=== PATIENT | female | born 1995 | race Caucasian/White ===

== ENCOUNTER 2021-12-31 09:32 | Inpatient (IN) | payer OTHER ==
[2021-12-31] VITALS (39 sets, daily range): BP systolic 88–113; BP diastolic 31–53
[~2021-12-31] VITALS: Ht 198.1 cm; Wt 94.0 kg
[~2021-12-31 09:32] MED LIST: FER325T PO; METHYLENE BLUE 0.5% 5MG/ML 10ml AMP IV ONE
[2021-12-31] MEDS ORDERED: SODIUM BICARBONATE 8.4 % INJ 50ML VIAL IV ONE ×3 (13:15→19:45)
[2021-12-31] MEDS ORDERED: HETASTARCH 500 ML IV ONE ×3 (13:15→14:00)
[2021-12-31] MEDS ORDERED: SODIUM CHL 0.9% IV SCH (14:15)
[2021-12-31] MEDS ORDERED: methylPREDNISolone SOD SUCC 40 MG/ML VL IV ONE (14:15)
[2021-12-31] MEDS ORDERED: DOBUTamine 1000MCG/ML 250 ML IV SCH (14:15)
[2021-12-31] MEDS ORDERED: LEVOTHYROXINE IV SCH (14:15)
[2021-12-31] MEDS ORDERED: LEVOTHYROXINE SODIUM 100 MCG/5 ML INJ IV ONE (14:15)
[2021-12-31] MEDS ORDERED: NOREPINEPHRINE BITARTRATE 32 MG in SODIUM CHL 0.9% 218 ML IV SCH (14:30)
[2021-12-31] MEDS ORDERED: VASOPRESSIN 50 UNITS in D5W 5% 247.5 ML IV SCH (14:30)
[2021-12-31] MEDS ORDERED: EPINEPHrine HCL INJECTION 16 MG in D5W 5% 234 ML IV SCH (14:30)
[2021-12-31] MEDS ORDERED: DOPamine 1600MCG/ML D5W 250 ML IV SCH (14:30)
[2021-12-31] MEDS ORDERED: THIAMINE 100mg/ml INJ (200mg/2ml VIAL) IM ONE (15:00)
[2021-12-31] MEDS ORDERED: methylPREDNISolone SOD SUCC 2,000 MG in SODIUM CHL 0.9% 100 ML IV ONE (15:45)
[2021-12-31] MEDS: ACCU-CHEK COMFORT CURVE STRIP VI SCH ×4 (16:00→22:44)
[2021-12-31] MEDS: ARTIFICIAL TEARS 15ml EACHEYE SCH ×4 (16:00→22:44)
[2021-12-31] MEDS ORDERED: METHYLENE BLUE 0.5% 5MG/ML 10ml AMP IV ONE (18:30)
[2021-12-31] MEDS: PHENYLEPHRINE INJ 80 MG in SODIUM CHL 0.9% 242 ML IV SCH (18:41)
[2021-12-31] MEDS ORDERED: SODIUM BICARBONATE 8.4% INJ 50ML SYRINGE ONE (20:11)
[2021-12-31 20:13] LABS: Basophils # (auto) 0 10 ^3/uL (0-0.2); Basophils % (auto) 0.1 % (0.0-2.0); Monocytes # (auto) 0.3 10 ^3/uL (0-1.3); Nucleated Red Blood Cells % 0.1 %
[2021-12-31 20:17] LABS: Eosinophils # (auto) 1.4 10 ^3/uL (0-0.8); Eosinophils % (auto) 11.4 % (0.0-7.0); Hematocrit 23.1 % (36.0-46.0); Hemoglobin 7.6 g/dL (12.2-16.2); Lymphocytes # (auto) 1.2 10 ^3/uL (0.4-5.4); Lymphocytes % (auto) 9.6 % (10.0-50.0); Mean Corpuscular Hemoglobin 27.9 pg (28.0-32.0); Mean Corpuscular Hgb Conc. 32.7 g/dL (32.0-36.0); Mean Corpuscular Volume 85.2 fL (80.0-100.0); Monocytes % (auto) 2.2 % (0.0-12.0); Neutrophils # (auto) 9.5 10 ^3/uL (1.6-8.6); Neutrophils % (auto) 76.7 % (37.0-80.0); Red Blood Cells 2.72 10^6/uL (4.0-5.20); Red Cell Distribution Width 16.3 % (11.8-14.3); White Blood Cell 12.5 10^3/uL (4.4-10.8)
[2021-12-31 20:26] LABS: Albumin 2.4 g/dL (3.4-5.0); Magnesium 1.5 mg/dL (1.6-2.6); Potassium 4.6 mmol/L (3.5-5.1)
[2021-12-31 20:43] LABS: BUN/Creatinine Ratio 13.7; Bilirubin, Direct 6.2 mg/dL (0-0.2); Bilirubin, Total 7.7 mg/dL (0.2-1.0); Total Protein 3.7 g/dL (6.4-8.2)
[2021-12-31] MEDS ORDERED: CYANOCOBALAMIN (B-12) 1000 MCG/1 ML VIAL SUBCUT ONE (21:30)
[2022-01-01] VITALS (40 sets, daily range): BP systolic 97–159; BP diastolic 54–84
[2022-01-01] MEDS ORDERED: THIAMINE 100mg/ml INJ (200mg/2ml VIAL) IM SCH
[2022-01-01] MEDS: ARTIFICIAL TEARS 15ml EACHEYE SCH ×4 (00:06→06:15)
[2022-01-01] MEDS: PIPERACILLIN-TAZOB 2.25GM 50 ML IV SCH ×2 (00:12→07:52)
[2022-01-01] MEDS: ACCU-CHEK COMFORT CURVE STRIP VI SCH ×4 (00:20→06:22)
[2022-01-01 00:56] LABS: Basophils # (auto) 0 10 ^3/uL (0-0.2); Lymphocytes # (auto) 0.8 10 ^3/uL (0.4-5.4)
[2022-01-01 00:58] LABS: Basophils % (auto) 0.1 % (0.0-2.0); Eosinophils % (auto) 9.6 % (0.0-7.0); Hematocrit 22.7 % (36.0-46.0); Hemoglobin 7.6 g/dL (12.2-16.2); Lymphocytes % (auto) 8.1 % (10.0-50.0); Mean Corpuscular Hemoglobin 29.2 pg (28.0-32.0); Mean Corpuscular Hgb Conc. 33.6 g/dL (32.0-36.0); Mean Corpuscular Volume 86.8 fL (80.0-100.0); Monocytes # (auto) 0.4 10 ^3/uL (0-1.3); Monocytes % (auto) 4.4 % (0.0-12.0); Neutrophils # (auto) 7.7 10 ^3/uL (1.6-8.6); Neutrophils % (auto) 77.8 % (37.0-80.0); Nucleated Red Blood Cells % 0.2 %; Red Blood Cells 2.62 10^6/uL (4.0-5.20); Red Cell Distribution Width 16.7 % (11.8-14.3); White Blood Cell 9.9 10^3/uL (4.4-10.8)
[2022-01-01] MEDS: DOPamine 3200MCG/ML 250 ML IV SCH ×2 (01:09→08:03)
[2022-01-01 01:10] LABS: INR 3.3 (0.9-1.15); Partial Thromboplastin Time 57.2 sec (24.6-33.4)
[2022-01-01 01:37] LABS: Lactic Acid w/Reflex 11.5 mmol/L (0.4-2.0)
[2022-01-01 01:42] LABS: Albumin 2.4 g/dL (3.4-5.0); BUN/Creatinine Ratio 14.4; Magnesium 1.6 mg/dL (1.6-2.6); Potassium 4.7 mmol/L (3.5-5.1)
[2022-01-01] MEDS: PHENYLEPHRINE INJ 80 MG in SODIUM CHL 0.9% 242 ML IV SCH (01:42)
[2022-01-01 01:51] LABS: Bilirubin, Total 8.6 mg/dL (0.2-1.0); Phosphorus 6.7 mg/dL (2.5-4.90); Total Protein 3.7 g/dL (6.4-8.2)
[2022-01-01] MEDS ORDERED: METHYLENE BLUE 0.5% 5MG/ML 10ml AMP IV ONE (02:00)
[2022-01-01] MEDS ORDERED: CALCIUM CHL 100MG/ML 2,000 MG in D5W 5% 100 ML IV ONE ×2 (02:15→09:30)
[2022-01-01] MEDS ORDERED: SODIUM BICARBONATE 8.4 % INJ 50ML VIAL IV ONE ×3 (02:15→12:15)
[2022-01-01] MEDS ORDERED: CALCIUM CHLOR(10%) 100MG/ML 10ML SYRINGE IV ONE (02:49)
[2022-01-01] MEDS ORDERED: metOLazone 5 MG TAB NG ONE (03:15)
[2022-01-01] MEDS ORDERED: FUROSEMIDE 100 MG/10ML VIAL IV ONE (03:45)
[2022-01-01] MEDS: MAGNESIUM SULFATE 1GM/100ML 100 ML IV SCH ×2 (05:24→06:42)
[2022-01-01] MEDS ORDERED: THIAMINE 100mg/ml INJ (200mg/2ml VIAL) IV SCH (06:00)
[2022-01-01] MEDS ORDERED: methylPREDNISolone SOD SUCC 500 MG in SODIUM CHL 0.9% 100 ML IV SCH ×3 (06:00)
[2022-01-01 07:19] LABS: Basophils # (auto) 0 10 ^3/uL (0-0.2); Hemoglobin 9.6 g/dL (12.2-16.2); Lymphocytes # (auto) 0.2 10 ^3/uL (0.4-5.4); Nucleated Red Blood Cells % 0.1 %; White Blood Cell 11.2 10^3/uL (4.4-10.8)
[2022-01-01 07:21] LABS: Basophils % (auto) 0.1 % (0.0-2.0); Eosinophils # (auto) 1.6 10 ^3/uL (0-0.8); Eosinophils % (auto) 14.1 % (0.0-7.0); Lymphocytes % (auto) 2.1 % (10.0-50.0); Mean Corpuscular Hemoglobin 28.9 pg (28.0-32.0); Mean Corpuscular Hgb Conc. 33.1 g/dL (32.0-36.0); Mean Corpuscular Volume 87.4 fL (80.0-100.0); Monocytes # (auto) 0.4 10 ^3/uL (0-1.3); Monocytes % (auto) 3.4 % (0.0-12.0); Neutrophils % (auto) 80.3 % (37.0-80.0); Red Blood Cells 3.32 10^6/uL (4.0-5.20); Red Cell Distribution Width 16.1 % (11.8-14.3)
[2022-01-01 08:33] LABS: Albumin 2.4 g/dL (3.4-5.0); BUN/Creatinine Ratio 13.3; Calcium 6.1 mg/dL (8.5-10.1); Magnesium 1.9 mg/dL (1.6-2.6)
[2022-01-01 08:42] LABS: Bilirubin, Direct 7.4 mg/dL (0-0.2); Bilirubin, Total 9.2 mg/dL (0.2-1.0); Phosphorus 8.4 mg/dL (2.5-4.90); Total Protein 3.9 g/dL (6.4-8.2)
[2022-01-01 09:26] LABS: Lactic Acid w/Reflex 11.8 mmol/L (0.4-2.0)
== END 2022-01-01 13:00 | DRG 298 ==
LOC: CC 09:32 → ICU WEST 09:33
PROVIDERS: ADMIT Internal Medicine; ATTEND Internal Medicine
PROC: 30233N1 Transfusion of Nonautologous Red Blood Cells into Peripheral Vein, Percutaneous Approach (ICD-10-PCS; principal; 2021-12-31)
PROC: 03HY32Z Insertion of Monitoring Device into Upper Artery, Percutaneous Approach (ICD-10-PCS; 2021-12-31)
PROC: B34HZZZ Ultrasonography of Right Upper Extremity Arteries (ICD-10-PCS; 2021-12-31)
PROC: 05H533Z Insertion of Infusion Device into Right Subclavian Vein, Percutaneous Approach (ICD-10-PCS; 2022-01-01)
PROC: B546ZZA Ultrasonography of Right Subclavian Vein, Guidance (ICD-10-PCS; 2022-01-01)
DX: I46.9 Cardiac arrest, cause unspecified (principal)
CPT/HCPCS: 36415; 36600; 71045; 76700; 80053; 82150; 82248; 82550; 82553; 82805; 82962; 82977; 83605; 83615; 83690; 83735; 83930; 84100; 84484; 85025; 85610; 85730; 86850; 86900; 86901; 86920; 87040; 87070; 87076; 87077; 87086; 87186; 87205; 93005; 94003; G0378; J0171; J1265; J2543; J3490; J7060